=== PATIENT | male | born 1955 | race Caucasian/White ===

== ENCOUNTER 2020-07-31 09:57 | Inpatient (IN) | payer MEDICARE ==
[2020-07-31 11:12] LABS: #Basophils 0.1 thou/uL (0.0-0.2); #Eosinphils 0.3 thou/uL (0.0-0.7); #Lymphocytes 0.9 thou/uL (1.20-3.40); #Monocytes 0.7 thou/uL (0.11-0.59); #Neutrophils 7.2 thou/uL (1.40-6.50); %Basophils 1.3 % (0.0-1.0); %Eosinophils 3.5 % (0.0-10.0); %Lymphocytes 9.3 % (21.0-51.0); %Monocytes 7.9 % (0.0-10.0); %Neutrophils 78.1 % (42.0-75.0); Hemoglobin 12.6 g/dL (14.0-18.0); Mean Corpuscular HGB CONC 31.7 g/dL (32.0-36.0); Mean Corpuscular Hemoglobin 30.4 pg (27.0-31.0); Mean Corpuscular Volume 95.8 fL (78.0-98.0); Mean Platelet Volume 8.3 fL (7.4-10.4); Platelet Count 184 thou/uL (130-400); RBC Distribution Width 15.7 % (11.5-14.5); Red Blood Cell (RBC) Count 4.17 mill/uL (4.70-6.10); White Blood Cell (WBC) Count 9.3 thou/uL (4.8-10.8)
[2020-07-31 11:22] LABS: ALT (SGPT) 13 U/L (8-55); AST (SGOT) 12 U/L (5-34); Albumin 3.3 g/dL (3.4-4.8); Alkaline Phosphatase 81 U/L (40-110); Anion Gap 14 mmol/L (10-20); BUN (Urea Nitrogen) 32 mg/dL (8.4-25.7); Bilirubin, Total 0.5 mg/dL (0.2-1.2); Calc. Creatinine Clearance 68 mL/min (70-130); Carbon Dioxide 31 mmol/L (23-31); Chloride 103 mmol/L (98-107); Globulin 3.1 g/dL (2.4-3.5); Glucose 121 mg/dL (80-115); Potassium 3.8 mmol/L (3.5-5.1); Protein, Total 6.4 g/dL (5.8-8.1); Sodium 144 mmol/L (136-145)
[2020-07-31] MEDS ORDERED: rOPINIRole HCl 2 MG TAB PO PRN (14:36)
[2020-07-31] MEDS ORDERED: Furosemide 100 MG/10 ML VIAL SLOW IVP SCH (15:15)
[2020-07-31] MEDS: Nicotine 21 MG PATCH TOP SCH (15:33)
[2020-07-31] MEDS: Pregabalin 50 MG CAP PO SCH ×2 (15:34→21:54)
[2020-07-31 16:41] LABS: Hemoglobin A1c 5.9 % (4.0-6.0)
[2020-07-31] MEDS ORDERED: Dextrose 50% Abboject 50 ML SYRINGE SLOW IVP PRN (16:56)
[2020-07-31] MEDS ORDERED: HumaLOG 300 UNITS/3 ML VIAL SC PRN (16:56)
[2020-07-31] MEDS ORDERED: Dextrose 5% in Water 1,000 ML IV PRN (16:56)
[2020-07-31] MEDS: Rivaroxaban 10 MG TAB PO SCH (17:04)
[2020-07-31] MEDS: cloNIDine 0.1 MG TAB PO PRN (17:04)
[2020-07-31] MEDS: Atorvastatin Calcium 40 MG TAB PO SCH (21:55)
[2020-07-31] MEDS: Zolpidem Tartrate 5 MG TAB PO PRN (22:12)
[2020-07-31 23:46] LABS: SARS-CoV-2 PCR by NAA Not Detected (NotDetected)
[2020-08-01 04:55] LABS: #Basophils 0.1 thou/uL (0.0-0.2); #Eosinphils 0.3 thou/uL (0.0-0.7); #Monocytes 0.8 thou/uL (0.11-0.59); #Neutrophils 5.2 thou/uL (1.40-6.50); %Eosinophils 4.5 % (0.0-10.0); %Lymphocytes 13.6 % (21.0-51.0); %Neutrophils 68.9 % (42.0-75.0); Hemoglobin 12.2 g/dL (14.0-18.0); Mean Corpuscular HGB CONC 31.4 g/dL (32.0-36.0); Mean Corpuscular Hemoglobin 30.7 pg (27.0-31.0); Mean Corpuscular Volume 98.1 fL (78.0-98.0); Platelet Count 158 thou/uL (130-400); RBC Distribution Width 16.3 % (11.5-14.5); Red Blood Cell (RBC) Count 3.95 mill/uL (4.70-6.10); White Blood Cell (WBC) Count 7.5 thou/uL (4.8-10.8)
[2020-08-01 05:01] LABS: ALT (SGPT) 13 U/L (8-55); AST (SGOT) 14 U/L (5-34); Albumin 3.1 g/dL (3.4-4.8); Alkaline Phosphatase 81 U/L (40-110); Anion Gap 15 mmol/L (10-20); BUN (Urea Nitrogen) 29 mg/dL (8.4-25.7); Bilirubin, Total 0.7 mg/dL (0.2-1.2); Calc. Creatinine Clearance 70 mL/min (70-130); Calcium 8.6 mg/dL (7.8-10.44); Carbon Dioxide 28 mmol/L (23-31); Chloride 103 mmol/L (98-107); Globulin 2.8 g/dL (2.4-3.5); Glucose 121 mg/dL (80-115); Potassium 3.4 mmol/L (3.5-5.1); Protein, Total 5.9 g/dL (5.8-8.1); Sodium 143 mmol/L (136-145)
[2020-08-01] MEDS: cloNIDine 0.1 MG TAB PO PRN ×2 (06:17→16:50)
[2020-08-01] MEDS: Furosemide 100 MG/10 ML VIAL SLOW IVP SCH ×2 (06:19→13:03)
[2020-08-01] MEDS ORDERED: Potassium Chloride 20 MEQ TAB PO SCH (07:15)
[2020-08-01] MEDS: Potassium Chloride 20 MEQ TAB PO SCH (08:26)
[2020-08-01] MEDS: Digoxin 0.125 MG TAB PO SCH (08:27)
[2020-08-01] MEDS: FLUoxetine HCl 10 MG CAP PO SCH (08:28)
[2020-08-01] MEDS: Cephalexin 250 MG CAP PO SCH ×2 (08:28→20:22)
[2020-08-01] MEDS: Losartan Potassium 50 MG TAB PO SCH (08:29)
[2020-08-01] MEDS: Pregabalin 50 MG CAP PO SCH ×3 (08:29→20:22)
[2020-08-01] MEDS: Aspirin Chewable 81 MG TAB PO SCH (08:30)
[2020-08-01] MEDS: Hydrochlorothiazide 25 MG TAB PO SCH (08:30)
[2020-08-01] MEDS: Lantus 1000 UNITS/10 ML VIAL SC SCH (08:33)
[2020-08-01] MEDS ORDERED: Acetaminophen 325 MG TAB PO PRN ×2 (13:12→17:46)
[2020-08-01] MEDS: Nicotine 21 MG PATCH TOP SCH (16:50)
[2020-08-01 16:52] VITALS: BMI 37.1
[2020-08-01] MEDS ORDERED: traMADol HCl 50 MG TAB PO PRN (16:56)
[2020-08-01] MEDS: Rivaroxaban 10 MG TAB PO SCH (17:16)
[2020-08-01] MEDS: Zolpidem Tartrate 5 MG TAB PO PRN (20:22)
[2020-08-01] MEDS: Atorvastatin Calcium 40 MG TAB PO SCH (20:23)
[2020-08-02] MEDS: Furosemide 100 MG/10 ML VIAL SLOW IVP SCH ×2 (05:39→14:13)
[2020-08-02] MEDS: cloNIDine 0.1 MG TAB PO PRN (05:54)
[2020-08-02 06:44] LABS: Anion Gap 15 mmol/L (10-20); BUN (Urea Nitrogen) 29 mg/dL (8.4-25.7); Calc. Creatinine Clearance 67 mL/min (70-130); Calcium 8.7 mg/dL (7.8-10.44); Carbon Dioxide 29 mmol/L (23-31); Chloride 103 mmol/L (98-107); Glucose 91 mg/dL (80-115); Potassium 3.7 mmol/L (3.5-5.1); Sodium 143 mmol/L (136-145)
[2020-08-02] MEDS: Lantus 1000 UNITS/10 ML VIAL SC SCH (08:46)
[2020-08-02] MEDS: FLUoxetine HCl 10 MG CAP PO SCH (08:47)
[2020-08-02] MEDS: Aspirin Chewable 81 MG TAB PO SCH (08:47)
[2020-08-02] MEDS: Potassium Chloride 20 MEQ TAB PO SCH (08:47)
[2020-08-02] MEDS: Amlodipine 5 MG TAB PO SCH (08:48)
[2020-08-02] MEDS: Hydrochlorothiazide 25 MG TAB PO SCH (08:48)
[2020-08-02] MEDS: Digoxin 0.125 MG TAB PO SCH (08:48)
[2020-08-02] MEDS: Pregabalin 50 MG CAP PO SCH ×3 (08:49→20:05)
[2020-08-02] MEDS: Losartan Potassium 50 MG TAB PO SCH (08:49)
[2020-08-02] MEDS: Cephalexin 250 MG CAP PO SCH ×2 (08:49→20:05)
[2020-08-02] MEDS: Rivaroxaban 10 MG TAB PO SCH (14:12)
[2020-08-02] MEDS: Nicotine 21 MG PATCH TOP SCH (14:13)
[2020-08-02] MEDS: Zolpidem Tartrate 5 MG TAB PO PRN (20:05)
[2020-08-02] MEDS: Atorvastatin Calcium 40 MG TAB PO SCH (20:05)
[2020-08-03 04:25] LABS: Anion Gap 15 mmol/L (10-20); BUN (Urea Nitrogen) 30 mg/dL (8.4-25.7); Calc. Creatinine Clearance 65 mL/min (70-130); Calcium 8.9 mg/dL (7.8-10.44); Carbon Dioxide 30 mmol/L (23-31); Chloride 103 mmol/L (98-107); Glucose 95 mg/dL (80-115); Potassium 3.6 mmol/L (3.5-5.1); Sodium 144 mmol/L (136-145)
[2020-08-03] MEDS: Furosemide 100 MG/10 ML VIAL SLOW IVP SCH ×2 (06:13→15:20)
[2020-08-03] MEDS: Digoxin 0.125 MG TAB PO SCH (09:03)
[2020-08-03] MEDS: Potassium Chloride 20 MEQ TAB PO SCH (09:03)
[2020-08-03] MEDS: Aspirin Chewable 81 MG TAB PO SCH (09:03)
[2020-08-03] MEDS: FLUoxetine HCl 10 MG CAP PO SCH (09:04)
[2020-08-03] MEDS: Hydrochlorothiazide 25 MG TAB PO SCH (09:04)
[2020-08-03] MEDS: Losartan Potassium 50 MG TAB PO SCH (09:04)
[2020-08-03] MEDS: Amlodipine 5 MG TAB PO SCH (09:04)
[2020-08-03] MEDS: Lantus 1000 UNITS/10 ML VIAL SC SCH (09:05)
[2020-08-03] MEDS: Cephalexin 250 MG CAP PO SCH ×2 (09:05→20:20)
[2020-08-03] MEDS: Pregabalin 50 MG CAP PO SCH ×3 (09:05→20:20)
[2020-08-03] MEDS: Rivaroxaban 10 MG TAB PO SCH (14:50)
[2020-08-03] MEDS: Nicotine 21 MG PATCH TOP SCH (14:50)
[2020-08-03] MEDS: cloNIDine 0.1 MG TAB PO PRN (17:43)
[2020-08-03] MEDS: Atorvastatin Calcium 40 MG TAB PO SCH (20:19)
[2020-08-03] MEDS: Zolpidem Tartrate 5 MG TAB PO PRN (20:19)
[2020-08-04 05:14] LABS: Anion Gap 13 mmol/L (10-20); BUN (Urea Nitrogen) 31 mg/dL (8.4-25.7); Calc. Creatinine Clearance 62 mL/min (70-130); Calcium 8.7 mg/dL (7.8-10.44); Carbon Dioxide 33 mmol/L (23-31); Chloride 101 mmol/L (98-107); Glucose 101 mg/dL (80-115); Potassium 3.5 mmol/L (3.5-5.1); Sodium 143 mmol/L (136-145)
[2020-08-04 05:48] VITALS: TEMP 97.7
[2020-08-04] MEDS: cloNIDine 0.1 MG TAB PO PRN (05:49)
[2020-08-04] MEDS: Furosemide 100 MG/10 ML VIAL SLOW IVP SCH ×2 (05:50→13:36)
[2020-08-04] MEDS: Digoxin 0.125 MG TAB PO SCH (08:07)
[2020-08-04] MEDS: Aspirin Chewable 81 MG TAB PO SCH (08:07)
[2020-08-04] MEDS: FLUoxetine HCl 10 MG CAP PO SCH (08:08)
[2020-08-04] MEDS: Pregabalin 50 MG CAP PO SCH ×2 (08:09→14:26)
[2020-08-04] MEDS: Losartan Potassium 50 MG TAB PO SCH (08:10)
[2020-08-04] MEDS: Cephalexin 250 MG CAP PO SCH (08:10)
[2020-08-04] MEDS: Hydrochlorothiazide 25 MG TAB PO SCH (08:11)
[2020-08-04] MEDS: Potassium Chloride 20 MEQ TAB PO SCH (08:11)
[2020-08-04] MEDS: Amlodipine 5 MG TAB PO SCH (08:13)
[2020-08-04] MEDS: Lantus 1000 UNITS/10 ML VIAL SC SCH (08:17)
[2020-08-04 12:58] VITALS: BP 127/80
[2020-08-04] MEDS: Nicotine 21 MG PATCH TOP SCH (14:26)
[2020-08-04] MEDS: Rivaroxaban 10 MG TAB PO SCH (14:26)
== END 2020-08-04 15:00 | disposition home or self-care (01) | DRG 292 ==
LOC: BURMED 09:57
PROVIDERS: ADMIT Family Medicine; ATTEND Family Medicine
DX: I13.0 Hypertensive heart and chronic kidney disease with heart failure and stage 1 through stage 4 chronic kidney disease, or unspecified chronic kidney disease (principal); L03.116 Cellulitis of left lower limb; L03.115 Cellulitis of right lower limb; I48.20 Chronic atrial fibrillation, unspecified; N18.30 Chronic kidney disease, stage 3 unspecified; E11.22 Type 2 diabetes mellitus with diabetic chronic kidney disease; E78.5 Hyperlipidemia, unspecified; I25.10 Atherosclerotic heart disease of native coronary artery without angina pectoris; I50.9 Heart failure, unspecified; F17.200 Nicotine dependence, unspecified, uncomplicated; L98.499 Non-pressure chronic ulcer of skin of other sites with unspecified severity
CPT/HCPCS: 36415; 36416; 71045; 80048; 80053; 83036; 83880; 85025; 87635; J1815; J1940; U0003; U0005

== ENCOUNTER 2021-11-27 17:52 | Inpatient (IN) | payer MEDICARE ==
[2021-11-27] MEDS ORDERED: Acetaminophen 325 MG TAB PO PRN (20:11)
[2021-11-27] MEDS: Pregabalin 50 MG CAP PO SCH (21:30)
[2021-11-27] MEDS: Zolpidem Tartrate 5 MG TAB PO SCH (21:30)
[2021-11-27] MEDS: Atorvastatin Calcium 40 MG TAB PO SCH (21:31)
[2021-11-27] MEDS: Acetaminophen/Codeine 30-300mg Tablet PO SCH (21:31)
[2021-11-28] MEDS: Acetaminophen/Codeine 30-300mg Tablet PO SCH ×6 (00:53→21:16)
[2021-11-28] MEDS ORDERED: Dextrose 5% in Water 1,000 ML IV PRN (07:17)
[2021-11-28] MEDS ORDERED: HumaLOG 300 UNITS/3 ML VIAL SC PRN (07:17)
[2021-11-28] MEDS ORDERED: Dextrose 50% Abboject 50 ML SYRINGE SLOW IVP PRN (07:17)
[2021-11-28] MEDS ORDERED: Milk Of Magnesia 30 ML UDCUP PO PRN (07:41)
[2021-11-28] MEDS: Polyethylene Glycol 3350 17 GM Packet PO SCH (09:14)
[2021-11-28] MEDS: FLUoxetine HCl 10 MG CAP PO SCH (09:14)
[2021-11-28] MEDS: Pregabalin 50 MG CAP PO SCH ×3 (09:15→21:17)
[2021-11-28] MEDS: Losartan 25 MG TAB PO SCH (09:16)
[2021-11-28] MEDS: glipiZIDE 5 MG TAB PO SCH (09:17)
[2021-11-28] MEDS: Furosemide 40 MG TAB PO SCH (09:17)
[2021-11-28] MEDS: Aspirin 81 mg Enteric Coated Tablet PO SCH (09:18)
[2021-11-28] MEDS: cloNIDine 0.1 MG TAB PO SCH (09:20)
[2021-11-28] MEDS: Amlodipine 5 MG TAB PO SCH (09:21)
[2021-11-28] MEDS: Lantus 1000 UNITS/10 ML VIAL SC SCH (09:26)
[2021-11-28] MEDS: Bumetanide 1 MG TAB PO SCH (12:52)
[2021-11-28] MEDS: Rivaroxaban 15 MG TAB PO SCH (17:01)
[2021-11-28] MEDS: Zolpidem Tartrate 5 MG TAB PO SCH (21:19)
[2021-11-28] MEDS: Atorvastatin Calcium 40 MG TAB PO SCH (21:19)
[2021-11-29] MEDS: Acetaminophen/Codeine 30-300mg Tablet PO SCH ×6 (01:00→20:34)
[2021-11-29] MEDS: Losartan 25 MG TAB PO SCH (09:18)
[2021-11-29] MEDS: Aspirin 81 mg Enteric Coated Tablet PO SCH (09:18)
[2021-11-29] MEDS: Pregabalin 50 MG CAP PO SCH ×3 (09:19→20:35)
[2021-11-29] MEDS: FLUoxetine HCl 10 MG CAP PO SCH (09:20)
[2021-11-29] MEDS: Amlodipine 5 MG TAB PO SCH (09:20)
[2021-11-29] MEDS: Polyethylene Glycol 3350 17 GM Packet PO SCH (09:21)
[2021-11-29] MEDS: cloNIDine 0.1 MG TAB PO SCH (09:21)
[2021-11-29] MEDS: glipiZIDE 5 MG TAB PO SCH (09:21)
[2021-11-29] MEDS: Furosemide 40 MG TAB PO SCH (09:21)
[2021-11-29] MEDS: Lantus 1000 UNITS/10 ML VIAL SC SCH (09:32)
[2021-11-29] MEDS: Bumetanide 1 MG TAB PO SCH (13:20)
[2021-11-29] MEDS: Rivaroxaban 15 MG TAB PO SCH (17:32)
[2021-11-29] MEDS: Zolpidem Tartrate 5 MG TAB PO SCH (20:35)
[2021-11-29] MEDS: Atorvastatin Calcium 40 MG TAB PO SCH (20:35)
[2021-11-30] MEDS: Acetaminophen/Codeine 30-300mg Tablet PO SCH ×6 (00:27→20:17)
[2021-11-30] MEDS: FLUoxetine HCl 10 MG CAP PO SCH (08:59)
[2021-11-30] MEDS: Aspirin 81 mg Enteric Coated Tablet PO SCH (08:59)
[2021-11-30] MEDS: Pregabalin 50 MG CAP PO SCH ×3 (09:00→20:18)
[2021-11-30] MEDS: Furosemide 40 MG TAB PO SCH (09:01)
[2021-11-30] MEDS: Amlodipine 5 MG TAB PO SCH (09:01)
[2021-11-30] MEDS: cloNIDine 0.1 MG TAB PO SCH (09:02)
[2021-11-30] MEDS: Losartan 25 MG TAB PO SCH (09:03)
[2021-11-30] MEDS: glipiZIDE 5 MG TAB PO SCH (09:03)
[2021-11-30] MEDS: Lantus 1000 UNITS/10 ML VIAL SC SCH (09:07)
[2021-11-30] MEDS: Polyethylene Glycol 3350 17 GM Packet PO SCH (09:08)
[2021-11-30] MEDS: Bumetanide 1 MG TAB PO SCH (12:51)
[2021-11-30] MEDS: Rivaroxaban 15 MG TAB PO SCH (17:04)
[2021-11-30] MEDS: Atorvastatin Calcium 40 MG TAB PO SCH (20:17)
[2021-11-30] MEDS: Zolpidem Tartrate 5 MG TAB PO SCH (22:03)
[2021-12-01] MEDS: Acetaminophen/Codeine 30-300mg Tablet PO SCH ×6 (01:41→20:16)
[2021-12-01] MEDS: FLUoxetine HCl 10 MG CAP PO SCH (08:18)
[2021-12-01] MEDS: Aspirin 81 mg Enteric Coated Tablet PO SCH (08:19)
[2021-12-01] MEDS: Amlodipine 5 MG TAB PO SCH (08:20)
[2021-12-01] MEDS: Losartan 25 MG TAB PO SCH (08:20)
[2021-12-01] MEDS: Pregabalin 50 MG CAP PO SCH ×3 (08:21→20:15)
[2021-12-01] MEDS: glipiZIDE 5 MG TAB PO SCH (08:22)
[2021-12-01] MEDS: cloNIDine 0.1 MG TAB PO SCH (08:22)
[2021-12-01] MEDS: Furosemide 40 MG TAB PO SCH (08:22)
[2021-12-01] MEDS: Lantus 1000 UNITS/10 ML VIAL SC SCH (08:29)
[2021-12-01] MEDS: Polyethylene Glycol 3350 17 GM Packet PO SCH (08:37)
[2021-12-01] MEDS: Bumetanide 1 MG TAB PO SCH (12:13)
[2021-12-01] MEDS: Rivaroxaban 15 MG TAB PO SCH (17:02)
[2021-12-01] MEDS: Atorvastatin Calcium 40 MG TAB PO SCH (20:16)
[2021-12-01] MEDS: Zolpidem Tartrate 5 MG TAB PO SCH (22:21)
[2021-12-02] MEDS: Acetaminophen/Codeine 30-300mg Tablet PO SCH ×6 (01:28→21:55)
[2021-12-02] MEDS: glipiZIDE 5 MG TAB PO SCH (08:25)
[2021-12-02] MEDS: Pregabalin 50 MG CAP PO SCH ×3 (09:43→21:56)
[2021-12-02] MEDS: Amlodipine 5 MG TAB PO SCH (09:44)
[2021-12-02] MEDS: Furosemide 40 MG TAB PO SCH (09:45)
[2021-12-02] MEDS: cloNIDine 0.1 MG TAB PO SCH (09:46)
[2021-12-02] MEDS: Losartan 25 MG TAB PO SCH (09:46)
[2021-12-02] MEDS: Aspirin 81 mg Enteric Coated Tablet PO SCH (09:46)
[2021-12-02] MEDS: FLUoxetine HCl 10 MG CAP PO SCH (09:47)
[2021-12-02] MEDS: Lantus 1000 UNITS/10 ML VIAL SC SCH (09:48)
[2021-12-02] MEDS: Polyethylene Glycol 3350 17 GM Packet PO SCH (09:50)
[2021-12-02] MEDS: Bumetanide 1 MG TAB PO SCH (11:51)
[2021-12-02] MEDS: Rivaroxaban 15 MG TAB PO SCH (16:43)
[2021-12-02] MEDS: Atorvastatin Calcium 40 MG TAB PO SCH (21:57)
[2021-12-02] MEDS: Zolpidem Tartrate 5 MG TAB PO SCH (21:57)
[2021-12-03] MEDS: Acetaminophen/Codeine 30-300mg Tablet PO SCH ×7 (02:37→20:30)
[2021-12-03] MEDS: Acetaminophen/Codeine 30-300mg Tablet PO PRN (03:14)
[2021-12-03] MEDS: glipiZIDE 5 MG TAB PO SCH (07:28)
[2021-12-03] MEDS: Pregabalin 50 MG CAP PO SCH ×3 (10:18→20:28)
[2021-12-03] MEDS: Aspirin 81 mg Enteric Coated Tablet PO SCH (10:19)
[2021-12-03] MEDS: cloNIDine 0.1 MG TAB PO SCH (10:20)
[2021-12-03] MEDS: FLUoxetine HCl 10 MG CAP PO SCH (10:20)
[2021-12-03] MEDS: Losartan 25 MG TAB PO SCH (10:21)
[2021-12-03] MEDS: Furosemide 40 MG TAB PO SCH (10:22)
[2021-12-03] MEDS: Amlodipine 5 MG TAB PO SCH (10:22)
[2021-12-03] MEDS: Polyethylene Glycol 3350 17 GM Packet PO SCH (10:23)
[2021-12-03] MEDS: Lantus 1000 UNITS/10 ML VIAL SC SCH (10:23)
[2021-12-03] MEDS: Bumetanide 1 MG TAB PO SCH (12:06)
[2021-12-03] MEDS: Rivaroxaban 15 MG TAB PO SCH (16:24)
[2021-12-03] MEDS: Atorvastatin Calcium 40 MG TAB PO SCH (20:28)
[2021-12-03] MEDS: Zolpidem Tartrate 5 MG TAB PO SCH (22:39)
[2021-12-04] MEDS: Acetaminophen/Codeine 30-300mg Tablet PO SCH ×6 (01:22→20:26)
[2021-12-04] MEDS: glipiZIDE 5 MG TAB PO SCH (07:31)
[2021-12-04] MEDS: Amlodipine 5 MG TAB PO SCH (09:15)
[2021-12-04] MEDS: Aspirin 81 mg Enteric Coated Tablet PO SCH (09:15)
[2021-12-04] MEDS: cloNIDine 0.1 MG TAB PO SCH (09:15)
[2021-12-04] MEDS: Pregabalin 50 MG CAP PO SCH ×3 (09:16→20:27)
[2021-12-04] MEDS: FLUoxetine HCl 10 MG CAP PO SCH (09:17)
[2021-12-04] MEDS: Losartan 25 MG TAB PO SCH (09:18)
[2021-12-04] MEDS: Furosemide 40 MG TAB PO SCH (09:18)
[2021-12-04] MEDS: Lantus 1000 UNITS/10 ML VIAL SC SCH (09:19)
[2021-12-04] MEDS: Polyethylene Glycol 3350 17 GM Packet PO SCH (09:19)
[2021-12-04] MEDS: Bumetanide 1 MG TAB PO SCH (11:54)
[2021-12-04] MEDS: Rivaroxaban 15 MG TAB PO SCH (16:01)
[2021-12-04] MEDS: Atorvastatin Calcium 40 MG TAB PO SCH (20:27)
[2021-12-04] MEDS: Zolpidem Tartrate 5 MG TAB PO SCH (22:24)
[2021-12-05] MEDS: Acetaminophen/Codeine 30-300mg Tablet PO SCH ×6 (01:49→19:59)
[2021-12-05] MEDS: Pregabalin 50 MG CAP PO SCH ×3 (08:25→20:00)
[2021-12-05] MEDS: Aspirin 81 mg Enteric Coated Tablet PO SCH (08:27)
[2021-12-05] MEDS: FLUoxetine HCl 10 MG CAP PO SCH (08:28)
[2021-12-05] MEDS: Losartan 25 MG TAB PO SCH (08:28)
[2021-12-05] MEDS: Amlodipine 5 MG TAB PO SCH (08:28)
[2021-12-05] MEDS: Furosemide 40 MG TAB PO SCH (08:29)
[2021-12-05] MEDS: cloNIDine 0.1 MG TAB PO SCH (08:29)
[2021-12-05] MEDS: glipiZIDE 5 MG TAB PO SCH (08:29)
[2021-12-05] MEDS: Polyethylene Glycol 3350 17 GM Packet PO SCH (08:31)
[2021-12-05] MEDS: Lantus 1000 UNITS/10 ML VIAL SC SCH (08:31)
[2021-12-05 11:15] VITALS: BMI 32.3
[2021-12-05] MEDS: Bumetanide 1 MG TAB PO SCH (13:06)
[2021-12-05] MEDS: Acetaminophen/Codeine 30-300mg Tablet PO PRN ×2 (15:27→22:39)
[2021-12-05] MEDS: Rivaroxaban 15 MG TAB PO SCH (17:33)
[2021-12-05] MEDS: Atorvastatin Calcium 40 MG TAB PO SCH (20:00)
[2021-12-05] MEDS: Zolpidem Tartrate 5 MG TAB PO SCH (22:35)
[2021-12-06] MEDS: Acetaminophen/Codeine 30-300mg Tablet PO SCH ×6 (00:56→21:56)
[2021-12-06 05:33] LABS: Hemoglobin 11.2 g/dL (14.0-18.0); Platelet Count 265 thou/uL (130-400)
[2021-12-06] MEDS: cloNIDine 0.1 MG TAB PO SCH (08:33)
[2021-12-06] MEDS: Furosemide 40 MG TAB PO SCH (08:33)
[2021-12-06] MEDS: Aspirin 81 mg Enteric Coated Tablet PO SCH (08:33)
[2021-12-06] MEDS: Pregabalin 50 MG CAP PO SCH ×3 (08:33→21:58)
[2021-12-06] MEDS: Amlodipine 5 MG TAB PO SCH (08:34)
[2021-12-06] MEDS: glipiZIDE 5 MG TAB PO SCH (08:35)
[2021-12-06] MEDS: Losartan 25 MG TAB PO SCH (08:36)
[2021-12-06] MEDS: FLUoxetine HCl 10 MG CAP PO SCH (08:36)
[2021-12-06] MEDS: Polyethylene Glycol 3350 17 GM Packet PO SCH (08:38)
[2021-12-06] MEDS: Lantus 1000 UNITS/10 ML VIAL SC SCH (08:55)
[2021-12-06] MEDS: Bumetanide 1 MG TAB PO SCH (12:36)
[2021-12-06] MEDS: Rivaroxaban 15 MG TAB PO SCH (17:57)
[2021-12-06] MEDS: Atorvastatin Calcium 40 MG TAB PO SCH (21:58)
[2021-12-06] MEDS: Zolpidem Tartrate 5 MG TAB PO SCH (21:58)
[2021-12-07] MEDS: Acetaminophen/Codeine 30-300mg Tablet PO SCH ×6 (01:13→21:50)
[2021-12-07] MEDS: Losartan 25 MG TAB PO SCH (07:51)
[2021-12-07] MEDS: Furosemide 40 MG TAB PO SCH (07:52)
[2021-12-07] MEDS: FLUoxetine HCl 10 MG CAP PO SCH (07:52)
[2021-12-07] MEDS: glipiZIDE 5 MG TAB PO SCH (07:53)
[2021-12-07] MEDS: Amlodipine 5 MG TAB PO SCH (07:53)
[2021-12-07] MEDS: cloNIDine 0.1 MG TAB PO SCH (07:53)
[2021-12-07] MEDS: Pregabalin 50 MG CAP PO SCH ×3 (07:54→21:49)
[2021-12-07] MEDS: Aspirin 81 mg Enteric Coated Tablet PO SCH (07:55)
[2021-12-07] MEDS: Polyethylene Glycol 3350 17 GM Packet PO SCH (07:58)
[2021-12-07] MEDS: Lantus 1000 UNITS/10 ML VIAL SC SCH (09:55)
[2021-12-07] MEDS: Bumetanide 1 MG TAB PO SCH (12:18)
[2021-12-07] MEDS: Rivaroxaban 15 MG TAB PO SCH (16:55)
[2021-12-07] MEDS: Zolpidem Tartrate 5 MG TAB PO SCH (21:50)
[2021-12-07] MEDS: Atorvastatin Calcium 40 MG TAB PO SCH (21:51)
[2021-12-08] MEDS: Acetaminophen/Codeine 30-300mg Tablet PO SCH ×6 (01:13→21:53)
[2021-12-08] MEDS: Pregabalin 50 MG CAP PO SCH ×3 (07:50→21:55)
[2021-12-08] MEDS: FLUoxetine HCl 10 MG CAP PO SCH (07:52)
[2021-12-08] MEDS: Losartan 25 MG TAB PO SCH (07:52)
[2021-12-08] MEDS: Amlodipine 5 MG TAB PO SCH (07:53)
[2021-12-08] MEDS: Furosemide 40 MG TAB PO SCH (07:53)
[2021-12-08] MEDS: Aspirin 81 mg Enteric Coated Tablet PO SCH (07:54)
[2021-12-08] MEDS: glipiZIDE 5 MG TAB PO SCH (07:54)
[2021-12-08] MEDS: cloNIDine 0.1 MG TAB PO SCH (07:54)
[2021-12-08] MEDS: Polyethylene Glycol 3350 17 GM Packet PO SCH (07:55)
[2021-12-08] MEDS: Lantus 1000 UNITS/10 ML VIAL SC SCH (07:55)
[2021-12-08] MEDS: Bumetanide 1 MG TAB PO SCH (12:20)
[2021-12-08] MEDS: Rivaroxaban 15 MG TAB PO SCH (16:41)
[2021-12-08] MEDS: Atorvastatin Calcium 40 MG TAB PO SCH (21:53)
[2021-12-08] MEDS: Zolpidem Tartrate 5 MG TAB PO SCH (21:53)
[2021-12-09] MEDS: Acetaminophen/Codeine 30-300mg Tablet PO SCH ×6 (01:21→21:11)
[2021-12-09] MEDS: Losartan 25 MG TAB PO SCH (09:10)
[2021-12-09] MEDS: Pregabalin 50 MG CAP PO SCH ×3 (09:11→21:12)
[2021-12-09] MEDS: FLUoxetine HCl 10 MG CAP PO SCH (09:12)
[2021-12-09] MEDS: Furosemide 40 MG TAB PO SCH (09:12)
[2021-12-09] MEDS: Aspirin 81 mg Enteric Coated Tablet PO SCH (09:13)
[2021-12-09] MEDS: glipiZIDE 5 MG TAB PO SCH (09:13)
[2021-12-09] MEDS: Amlodipine 5 MG TAB PO SCH (09:13)
[2021-12-09] MEDS: Polyethylene Glycol 3350 17 GM Packet PO SCH (09:14)
[2021-12-09] MEDS: cloNIDine 0.1 MG TAB PO SCH (09:14)
[2021-12-09] MEDS: Lantus 1000 UNITS/10 ML VIAL SC SCH (09:15)
[2021-12-09] MEDS: Bumetanide 1 MG TAB PO SCH (12:15)
[2021-12-09] MEDS: Rivaroxaban 15 MG TAB PO SCH (17:12)
[2021-12-09] MEDS: Atorvastatin Calcium 40 MG TAB PO SCH (21:12)
[2021-12-09] MEDS: Zolpidem Tartrate 5 MG TAB PO SCH (22:05)
[2021-12-10] MEDS: Acetaminophen/Codeine 30-300mg Tablet PO SCH ×6 (00:55→20:59)
[2021-12-10] MEDS: Polyethylene Glycol 3350 17 GM Packet PO SCH (09:23)
[2021-12-10] MEDS: Pregabalin 50 MG CAP PO SCH ×3 (09:26→20:58)
[2021-12-10] MEDS: Losartan 25 MG TAB PO SCH (09:28)
[2021-12-10] MEDS: FLUoxetine HCl 10 MG CAP PO SCH (09:29)
[2021-12-10] MEDS: cloNIDine 0.1 MG TAB PO SCH (09:30)
[2021-12-10] MEDS: Furosemide 40 MG TAB PO SCH (09:31)
[2021-12-10] MEDS: Aspirin 81 mg Enteric Coated Tablet PO SCH (09:31)
[2021-12-10] MEDS: Amlodipine 5 MG TAB PO SCH (09:32)
[2021-12-10] MEDS: glipiZIDE 5 MG TAB PO SCH (09:32)
[2021-12-10] MEDS: Lantus 1000 UNITS/10 ML VIAL SC SCH (09:35)
[2021-12-10] MEDS: Bumetanide 1 MG TAB PO SCH (13:37)
[2021-12-10] MEDS: Rivaroxaban 15 MG TAB PO SCH (17:35)
[2021-12-10] MEDS: Atorvastatin Calcium 40 MG TAB PO SCH (20:59)
[2021-12-10] MEDS: Zolpidem Tartrate 5 MG TAB PO SCH (22:02)
[2021-12-11] MEDS: Acetaminophen/Codeine 30-300mg Tablet PO SCH ×6 (01:00→21:18)
[2021-12-11] MEDS: Pregabalin 50 MG CAP PO SCH ×3 (08:46→21:19)
[2021-12-11] MEDS: glipiZIDE 5 MG TAB PO SCH (08:46)
[2021-12-11] MEDS: FLUoxetine HCl 10 MG CAP PO SCH (08:47)
[2021-12-11] MEDS: Amlodipine 5 MG TAB PO SCH (08:48)
[2021-12-11] MEDS: Losartan 25 MG TAB PO SCH (08:54)
[2021-12-11] MEDS: Furosemide 40 MG TAB PO SCH (08:54)
[2021-12-11] MEDS: Aspirin 81 mg Enteric Coated Tablet PO SCH (08:54)
[2021-12-11] MEDS: cloNIDine 0.1 MG TAB PO SCH (08:54)
[2021-12-11] MEDS: Polyethylene Glycol 3350 17 GM Packet PO SCH (08:56)
[2021-12-11] MEDS: Lantus 1000 UNITS/10 ML VIAL SC SCH (08:58)
[2021-12-11] MEDS: Bumetanide 1 MG TAB PO SCH (12:50)
[2021-12-11] MEDS: Rivaroxaban 15 MG TAB PO SCH (16:55)
[2021-12-11] MEDS: Atorvastatin Calcium 40 MG TAB PO SCH (21:19)
[2021-12-11] MEDS: Zolpidem Tartrate 5 MG TAB PO SCH (22:13)
[2021-12-12] MEDS: Acetaminophen/Codeine 30-300mg Tablet PO SCH ×6 (00:51→20:39)
[2021-12-12] MEDS: cloNIDine 0.1 MG TAB PO SCH (08:19)
[2021-12-12] MEDS: Furosemide 40 MG TAB PO SCH (08:19)
[2021-12-12] MEDS: FLUoxetine HCl 10 MG CAP PO SCH (08:20)
[2021-12-12] MEDS: Pregabalin 50 MG CAP PO SCH ×3 (08:21→20:38)
[2021-12-12] MEDS: Losartan 25 MG TAB PO SCH (08:22)
[2021-12-12] MEDS: Amlodipine 5 MG TAB PO SCH (08:23)
[2021-12-12] MEDS: glipiZIDE 5 MG TAB PO SCH (08:23)
[2021-12-12] MEDS: Lantus 1000 UNITS/10 ML VIAL SC SCH (08:23)
[2021-12-12] MEDS: Aspirin 81 mg Enteric Coated Tablet PO SCH (08:27)
[2021-12-12] MEDS: Polyethylene Glycol 3350 17 GM Packet PO SCH (08:31)
[2021-12-12] MEDS: Bumetanide 1 MG TAB PO SCH (12:31)
[2021-12-12] MEDS: Rivaroxaban 15 MG TAB PO SCH (17:05)
[2021-12-12] MEDS: Atorvastatin Calcium 40 MG TAB PO SCH (20:38)
[2021-12-12] MEDS: Zolpidem Tartrate 5 MG TAB PO SCH (22:53)
[2021-12-13] MEDS: Acetaminophen/Codeine 30-300mg Tablet PO SCH ×4 (00:52→11:59)
[2021-12-13 05:38] VITALS: TEMP 98.1
[2021-12-13] MEDS: Pregabalin 50 MG CAP PO SCH (08:04)
[2021-12-13] MEDS: cloNIDine 0.1 MG TAB PO SCH (08:06)
[2021-12-13] MEDS: FLUoxetine HCl 10 MG CAP PO SCH (08:07)
[2021-12-13] MEDS: Losartan 25 MG TAB PO SCH (08:07)
[2021-12-13] MEDS: Aspirin 81 mg Enteric Coated Tablet PO SCH (08:07)
[2021-12-13] MEDS: Amlodipine 5 MG TAB PO SCH (08:08)
[2021-12-13] MEDS: Furosemide 40 MG TAB PO SCH (08:08)
[2021-12-13] MEDS: glipiZIDE 5 MG TAB PO SCH (08:08)
[2021-12-13] MEDS: Polyethylene Glycol 3350 17 GM Packet PO SCH (08:09)
[2021-12-13] MEDS: Lantus 1000 UNITS/10 ML VIAL SC SCH (08:09)
[2021-12-13 08:12] VITALS: BP 160/93
[2021-12-13] MEDS: Bumetanide 1 MG TAB PO SCH (12:01)
== END 2021-12-10 12:15 | disposition home or self-care (01) | DRG 560 ==
LOC: EEVIPCON 19:00 → BURMED 19:00
PROVIDERS: ADMIT Family Medicine; ATTEND Family Medicine
DX: S72.8X1D Other fracture of right femur, subsequent encounter for closed fracture with routine healing (principal); I48.20 Chronic atrial fibrillation, unspecified; I50.32 Chronic diastolic (congestive) heart failure; I13.0 Hypertensive heart and chronic kidney disease with heart failure and stage 1 through stage 4 chronic kidney disease, or unspecified chronic kidney disease; I49.3 Ventricular premature depolarization; R53.1 Weakness; E78.5 Hyperlipidemia, unspecified; R26.89 Other abnormalities of gait and mobility; N18.30 Chronic kidney disease, stage 3 unspecified; E11.22 Type 2 diabetes mellitus with diabetic chronic kidney disease; Z79.899 Other long term (current) drug therapy; Z20.822 Contact with and (suspected) exposure to COVID-19; Z79.84 Long term (current) use of oral hypoglycemic drugs; Z79.82 Long term (current) use of aspirin; Z79.01 Long term (current) use of anticoagulants
CPT/HCPCS: 36415; 36416; 82565; 85014; 85018; 85049; J1815; U0003; U0005